=== PATIENT | male | born 1980 | race Caucasian/White ===

== ENCOUNTER 2024-03-18 08:43 | Emergency (ER) | payer OTHER, SELFPAY ==
[2024-03-18 08:53] VITALS: BP 146/74
--- NOTE | 2024-03-18 09:47 | ED.GENMED ---
History of Present Illness
General
Chief Complaint: Skin Surface Trauma
Source: patient
Exam Limitations: none
Time Seen by Provider: 03/18/24 09:01
Nursing documentation reviewed up to this point in time: agreed with
History of Present Illness
History of Present Illness:
43-year-old male presents with a thumb laceration. Patient was making a smoothie this morning and reached into the sink and the blade from the theatre director cut his right thumb. Unsure of last tetanus.
Past History
Past History
ED Past Medical History: GERD; Negative CAD, CVA, HTN or IDDM
Social History
Personal: Partner
Living: with roommate
Employment: Employed
Review of Systems
Review of Systems
All Other Systems: ROS reviewed and negative except as documented in HPI and ROS
Skin: Reports other (Laceration)
Phy Exam
Physical Exam
Physical Exam:
General: Well appearing and non-toxic
HEENT: protecting airway
Neck: appears supple
CV: No evidence of cyanosis
Resp: No accessory muscle use
Abd: Non-distended
Extremities: No deformities
Neuro: Alert
Psych: Normal affect
Skin: Patient has a 4 cm linear laceration from the tip of the thumb down towards the DIP joint on the pad
Scores
Heart Failure Risk
Heart Failure Risk Score: Not Applicable
Heart Score for Chest Pain Patients
STEMI patient?: Not applicable
Withdrawal Assessment of Alcohol
Withdrawal Assessment Completed?: Not applicable
Course
Orders/Labs/Results
Orders:
Orders
03/18/24 09:04
Tetanus/Diphth/Acelpertussis [Adacel] 0.5 ml IM .ONCE ONE
Vital Signs
Initial and Last Documented VS:
Initial Vital Signs
Temp Pulse Resp BP Pulse Ox
36.7 C 76 16 146/74 99
03/18/24 08:53 03/18/24 08:53 03/18/24 08:53 03/18/24 08:53 03/18/24 08:53
Last Documented Vital Signs
Temp Pulse Resp BP Pulse Ox
36.7 C 76 16 146/74 99
03/18/24 08:53 03/18/24 08:53 03/18/24 08:53 03/18/24 08:53 03/18/24 08:53
Procedures
Laceration Closure
Right Thumb:
Status of Wound: clean
Size of Wound in cm: 4
Description of Wound Edges: sharp
Preparation: cleaned with saline
Anesthesia: Digital-Regional
Revision/Debridement: routine- no revision
Wound exploration: explored to base- no FB
Type of Closure: single layer closure
Skin Closure Material: 5-0 nylon
Number of sutures: 7
MDM/Problems Addressed
Differential Diagnosis Includes:
Thumb laceration
MDM/Problems Addressed:
43-year-old male with thumb laceration. Digital block for anesthesia. No foreign body noted on wound exploration. Wound irrigated and cleaned with soap and water. Repaired as documented in procedure note with simple interrupted sutures. Tetanus
updated. Clean dressing applied. Discharged with instructions to return for suture removal and discussed precautions regarding signs of infection. All questions answered.
*Pulse Oximetry
Patient hypoxic: no
*Critical Care Note
Total Time (30-74mins, 75-104mins- exclusive of procedures): Not Applicable
Data Reviewed
Source: patient
ED Attending Note
-
Portions of this chart may have been created with voice recognition software.� Occasional wrong word or��sound alike� substitutions may have occurred due to the inherent limitations of voice recognition software.
Discharge Plan
Departure
Patient Disposition: Home (Routine Discharge)
Date of Disposition: 03/18/24
Time of Disposition: 09:46
Patient with high blood pressure during this ER visit?: Yes
Discharge Problem:
Laceration of thumb
Instructions: Laceration Repair With Stitches (DC)
Prescriptions:
No Action
omeprazole [Prilosec] 20 MG capsule,delayed release(DR/EC)
20 mg PO DAILY
lansoprazole [Prevacid] 30 MG capsule,delayed release(DR/EC)
30 mg PO BID Qty: 60 0RF
Referrals:
UNKNOWN - PT DOES,NOT KNOW [Family Provider] -
Activity Restrictions/Additional Instructions:
Your stitches should be removed in 1 week. You can either return here to the ED, follow up at Urgent Care, or follow up with your primary care doctor. If notice signs of infection, please return immediately.
Thank you for visiting the Emergency Department at [facility].
1. Please schedule a follow up appointment as directed. Call first thing tomorrow morning to make an appointment.
2. If indicated, please take your medications as instructed and indicated on discharge paperwork.
3. If any of your symptoms do not improve, or persist, or become more severe within 6-12 hours, please return to the emergency department for further care.
4. Please return to the emergency department if you develop a headache, neck pain/stiffness, fever greater than 100.4F, chest pain, shortness of breath, persistent nausea, vomiting, slurred speech, difficulty walking, numbness/tingling, weakness,
signs of infection or any other symptoms that are worrisome to you.
Please call [phone] if you have any questions.
Interventions
Interventions:
*Risk Screen - Suicide Last Done: 03/18/24 10:01
*General Assessment Last Done: 03/18/24 10:01
*Neglect/Abuse Screening Last Done: 03/18/24 10:01
ED- Fall Risk Assessment Last Done: 03/18/24 10:06
*ED COVID-19 Vaccine History Last Done: 03/18/24 10:01
*Nursing Disposition Last Done: 03/18/24 10:06
ED-Skin Assessment Last Done: 03/18/24 10:01
Discharge Date and Time
Discharge Date/Time: 03/18/24 10:07
Print Language: PASHTO
[2024-03-18] MEDS: ADACEL 0.5 ML IM (09:55)
== END 2024-03-18 10:07 | disposition home or self-care (01) ==
LOC: EMR 08:43
PROVIDERS: EMERGENCY PHYSICIAN Emergency Medicine
DX: S61.011A Laceration without foreign body of right thumb without damage to nail, initial encounter (principal); W29.0XXA Contact with powered kitchen appliance, initial encounter; Z23 Encounter for immunization; K21.9 Gastro-esophageal reflux disease without esophagitis; Z86.73 Personal history of transient ischemic attack (TIA), and cerebral infarction without residual deficits
CPT/HCPCS: 99283; 12002; 90471; 90715